=== PATIENT | male | born 1945 | race Two or more races ===

== ENCOUNTER → 2024-10-25 | Outpatient (CLI) | payer OTHER, MEDICAID, SELFPAY ==
--- NOTE | 2024-10-25 10:00 | XR_ITS ---
Examination: CT pelvis without intravenous contrast. 2-D sagittal and coronal reconstructions. Date and time of exam:October 25, 2024 0958 hours INDICATIONS: Right lower pelvic pain several months, history hernia several years CTDI: vol (mGy) :9.53 DLP: (mGycm) : 336 Technique: Multiple 3 mm axial sections of the pelvis have been obtained with the 64 slice high resolution scanner. 2-D sagittal and coronal reconstructions. Low dose protocols were performed. One or more of the following dose reduction techniques were used; automated exposure control, adjustment of the mA and/or KV according to patient size, use of iterative reconstruction technique. Findings: Colonic diverticulosis Large right inguinal hernia containing right colon, no incarcerated bowel Small fat-containing left inguinal hernia Contracted urinary bladder No significant prostatomegaly Incidental note hyperemia and wall thickening involving the entire visualized colon Mild to moderate narrowing hip joints IMPRESSION: Large right inguinal hernia containing right colon, no incarcerated bowel or bowel obstruction Incidental note diffuse nonspecific colitis pattern
== END | disposition home or self-care (01) ==
PROVIDERS: PCP Family Medicine; Referring Provider Nurse Practitioner Family; Visit Provider Nurse Practitioner Family
DX: K40.90 Unilateral inguinal hernia, without obstruction or gangrene, not specified as recurrent (principal)
CPT/HCPCS: 72192